=== PATIENT | female | born 1940 | race Caucasian/White ===

== ENCOUNTER 2018-04-19 13:03 | Outpatient (CLI) | payer OTHER | END 2018-04-19 13:18 | disposition home or self-care (01) | LOC: MAMO-SONO 13:03 | DX: Z12.31 Encounter for screening mammogram for malignant neoplasm of breast (principal); Z87.898 Personal history of other specified conditions; N60.11 Diffuse cystic mastopathy of right breast; N60.12 Diffuse cystic mastopathy of left breast ==

== ENCOUNTER → 2018-04-19 | Outpatient (CLI) | payer OTHER ==
[~2018-04-19] MED LIST: SYNTHROID50 MCG
== END | disposition home or self-care (01) ==
LOC: NUCLEAR 13:00
DX: M81.0 Age-related osteoporosis without current pathological fracture (principal)

== ENCOUNTER 2019-05-04 13:08 | Outpatient (CLI) | payer OTHER | END 2019-05-04 13:14 | disposition home or self-care (01) | LOC: MAMO-SONO 13:08 | DX: N60.11 Diffuse cystic mastopathy of right breast (principal); N60.12 Diffuse cystic mastopathy of left breast; Z12.31 Encounter for screening mammogram for malignant neoplasm of breast; Z87.898 Personal history of other specified conditions ==

== ENCOUNTER 2020-06-20 15:04 | Outpatient (CLI) | payer OTHER | END 2020-06-20 15:15 | disposition home or self-care (01) | LOC: SONOGRAMA 15:04 | PROVIDERS: ATTEND Internal Medicine | DX: N60.11 Diffuse cystic mastopathy of right breast (principal); N60.12 Diffuse cystic mastopathy of left breast; Z12.31 Encounter for screening mammogram for malignant neoplasm of breast ==

== ENCOUNTER 2021-06-24 13:20 | Outpatient (CLI) | payer OTHER | END 2021-06-24 13:31 | disposition home or self-care (01) | LOC: MAMO-SONO 13:20 | PROVIDERS: ATTEND Internal Medicine | DX: R92.1 Mammographic calcification found on diagnostic imaging of breast (principal); Z12.31 Encounter for screening mammogram for malignant neoplasm of breast; N60.11 Diffuse cystic mastopathy of right breast; N60.12 Diffuse cystic mastopathy of left breast ==

== ENCOUNTER 2021-11-28 14:18 | Outpatient (CLI) | payer OTHER | END 2021-11-28 14:23 | disposition home or self-care (01) | LOC: RAD 14:18 | PROVIDERS: ATTEND Internal Medicine | DX: R07.89 Other chest pain (principal) ==

== ENCOUNTER 2022-04-14 05:10 | Day surgery (SDC) | payer OTHER | END 2022-04-14 13:15 | disposition home or self-care (01) | LOC: AMB-ENDOS 05:10 | PROVIDERS: ATTEND Surgery | DX: K29.50 Unspecified chronic gastritis without bleeding (principal); D12.3 Benign neoplasm of transverse colon; Z88.8 Allergy status to other drugs, medicaments and biological substances; Z20.822 Contact with and (suspected) exposure to COVID-19; K57.30 Diverticulosis of large intestine without perforation or abscess without bleeding; K64.8 Other hemorrhoids; L72.0 Epidermal cyst ==

== ENCOUNTER 2023-01-22 09:41 | Outpatient (CLI) | payer OTHER | END 2023-01-22 09:42 | disposition home or self-care (01) | LOC: NUCLEAR 09:41 | PROVIDERS: ATTEND Internal Medicine | DX: I27.20 Pulmonary hypertension, unspecified (principal); I50.1 Left ventricular failure, unspecified ==

== ENCOUNTER 2023-01-26 12:46 | Outpatient (CLI) | payer OTHER | END 2023-01-26 12:52 | disposition home or self-care (01) | LOC: TOM 12:46 | PROVIDERS: ATTEND Internal Medicine | DX: J84.10 Pulmonary fibrosis, unspecified (principal) ==

== ENCOUNTER 2023-03-12 11:57 | Emergency (ER) | payer OTHER ==
[~2023-03-12] VITALS: Ht 157.5 cm; Wt 65.8 kg
== END 2023-03-12 14:21 | disposition home or self-care (01) ==
LOC: ER 11:57
DX: S00.83XA Contusion of other part of head, initial encounter (principal); W18.39XA Other fall on same level, initial encounter; Y93.89 Activity, other specified; Y92.89 Other specified places as the place of occurrence of the external cause; Y99.8 Other external cause status; E03.8 Other specified hypothyroidism; Z88.6 Allergy status to analgesic agent; Z88.5 Allergy status to narcotic agent

== ENCOUNTER 2023-09-08 12:53 | Outpatient (CLI) | payer OTHER | END 2023-09-08 13:00 | disposition home or self-care (01) | LOC: MAMO-SONO 12:53 | PROVIDERS: ATTEND Internal Medicine | DX: N60.11 Diffuse cystic mastopathy of right breast (principal); N60.12 Diffuse cystic mastopathy of left breast; Z12.31 Encounter for screening mammogram for malignant neoplasm of breast ==

== ENCOUNTER 2024-06-14 14:16 | Emergency (ER) | payer OTHER ==
[~2024-06-14] VITALS: Ht 157.5 cm; Wt 72.6 kg
[2024-06-14] MEDS ORDERED: POVIDONE-IODINE 118 ML BOTT TOP ONE (15:15)
[2024-06-14] MEDS ORDERED: TETANUS & DIPHTHERIA TOX,ADULT 0.5 ML VIAL IM ONE (16:00)
[2024-06-14] MEDS ORDERED: ACETAMINOPHEN 500 MG GEL..CAP PO ONE ×2 (16:00→16:06)
[2024-06-14] MEDS ORDERED: TETANUS DIPHTHERIA TOX. ADSOR 5 ML VIAL IM ONE (16:06)
[2024-06-14] MEDS ORDERED: MEPERIDINE HCL/PF 25 MG/ML VIAL IM ONE ×2 (19:15→23:15)
[2024-06-14] MEDS ORDERED: PANTOPRAZOLE SODIUM 40 MG TABLET.DR PO ONE (21:15)
[2024-06-14] MEDS ORDERED: NEURONTIN300 MG PO (23:18)
== END 2024-06-15 02:11 ==
LOC: ER 14:16
DX: S00.211A Abrasion of right eyelid and periocular area, initial encounter (principal); W19.XXXA Unspecified fall, initial encounter; Y93.89 Activity, other specified; Y92.238 Other place in hospital as the place of occurrence of the external cause; Y99.8 Other external cause status; E03.8 Other specified hypothyroidism; Z88.5 Allergy status to narcotic agent; Z88.6 Allergy status to analgesic agent
CPT/HCPCS: 70450; 71045; 72192; 73030; 73501; 73521; 73560; 96372; 99284; J3490

== ENCOUNTER → 2024-08-10 14:26 | Outpatient (CLI) | payer OTHER ==
[~2024-08-10 14:26] MED LIST changes: +NEURONTIN300 MG PO
[2024-08-10 15:10] LABS: HEMATOCRIT 32.1 % (36.0-45.00); HEMOGLOBIN 10.8 g/dL (12.0-15.00); MEAN CELL VOLUME 89.6 fL (80.00-100.00); MEAN CORPUSCULAR HEMOGLOBIN 30.1 pg (27.00-32.0); MEAN CORPUSCULAR HGB CONC 33.6 g/dl (32.0-36.0); PLATELET COUNT 224 K/uL (150-450); RED BLOOD COUNT 3.58 M/uL (4.00-6.00); RED CELL DISTRIBUTION WIDTH 13.1 % (11.5-14.5)
[2024-08-10 15:43] LABS: ALBUMIN 3.6 gm/dL (3.4-5.0); BILIRUBIN TOTAL 0.38 mg/dL (0.3-1.2); CALCIUM 9.2 mg/dL (8.5-10.1); CHOL HDL RATIO 4.3 (0-5.0); CREATININE SERUM 0.94 mg/dL (0.55-1.02); FREE TRIODOTIRONINE 2.31 pg/ml (2.18-3.98); GFR 56.46; GLOBULINA 4.1 G/DL (2.4-3.5); PHOSPHOROUS 3.5 mg/dL (2.5-4.9); POTASSIUM 4.33 mEq/L (3.5-5.1); T4 TOTAL 12.06 UG/DL (4.8-13.9); TOTAL PROTEIN 7.7 gm/dL (6.4-8.2); TSH 0.383 uIU/mL (0.358-3.74)
[2024-08-10 15:47] LABS: C-REACTIVE PROTEIN 1.44 MG/DL (0.00-0.29)
[2024-08-10 17:08] LABS: PH,URINE 5.5 (5.0-8.0); URINE APPEARANCE Cloudy; URINE BILIRRUBIN Negative (NEGATIVE); URINE BLOOD Negative; URINE COLOR Yellow; URINE GLUCOSE Negative (NEGATIVE); URINE KETONE Negative (NEGATIVE); URINE LEUKOCYTE Large; URINE NITRATE Positive; URINE PROTEIN Negative (NEGATIVE); URINE UROBILINOGEN 0.2 E.U./dl
[2024-08-10 17:12] LABS: URINE EPITHELIAL CELLS 10.8 uL (0.0-38.8); URINE RBC 4.8 uL (0.0-20.8); URINE WBC 947.7 uL (0.0-23.2)
[2024-08-10 17:22] LABS: URINE BACTERIA > 9821.5 uL (0.0-1933)
[2024-08-12 08:06] LABS: CALCIUM IONIZED 5.2 mg/dL (4.5-5.6)
== END | disposition home or self-care (01) ==
LOC: LAB 14:26
PROVIDERS: ATTEND Internal Medicine
DX: E03.9 Hypothyroidism, unspecified (principal); E55.9 Vitamin D deficiency, unspecified; E78.9 Disorder of lipoprotein metabolism, unspecified; R73.9 Hyperglycemia, unspecified; N39.0 Urinary tract infection, site not specified; M85.9 Disorder of bone density and structure, unspecified; E56.1 Deficiency of vitamin K; E21.3 Hyperparathyroidism, unspecified; E88.89 Other specified metabolic disorders; M81.8 Other osteoporosis without current pathological fracture

== ENCOUNTER 2025-01-03 14:11 | Outpatient (CLI) | payer OTHER | END 2025-01-03 14:17 | disposition home or self-care (01) | LOC: MAMO-SONO 14:11 | PROVIDERS: ATTEND Internal Medicine | DX: N64.4 Mastodynia (principal); Z12.31 Encounter for screening mammogram for malignant neoplasm of breast; Z12.39 Encounter for other screening for malignant neoplasm of breast ==

== ENCOUNTER 2025-01-11 13:33 | Outpatient (CLI) | payer OTHER | END 2025-01-11 13:35 | disposition home or self-care (01) | LOC: NUCLEAR 13:33 | PROVIDERS: ATTEND Orthopaedic Surgery | DX: M81.0 Age-related osteoporosis without current pathological fracture (principal); M85.9 Disorder of bone density and structure, unspecified ==

== ENCOUNTER 2025-05-12 14:38 | Outpatient (CLI) | payer OTHER | END 2025-05-12 14:40 | disposition home or self-care (01) | LOC: TOM 14:38 | PROVIDERS: ATTEND Internal Medicine | DX: S09.90XA Unspecified injury of head, initial encounter (principal) ==